=== PATIENT | female | born 1980 | race Caucasian/White ===

== ENCOUNTER → 2021-02-13 11:59 | Outpatient (CLI) | payer OTHER, SELFPAY ==
[2021-02-13 21:28] LABS: COVID19 - ORCAS (NP or Nasal) Negative (Negative)
== END ==
PROVIDERS: Family Provider Family Medicine; PCP Family Medicine; Visit Provider Physician Assistant Medical
DX: Z20.822 Contact with and (suspected) exposure to COVID-19 (principal); R05.9 Cough, unspecified
CPT/HCPCS: U0003

== ENCOUNTER → 2024-03-28 10:55 | Outpatient (CLI) | payer OTHER, SELFPAY ==
[2024-03-28 19:16] LABS: Add Manual Diff / Slide Review NO; Basophils Absolute Auto 0 /uL (0-100); Basophils Percent Auto 0.8 % (0-2); Eosinophils Absolute Auto 0 /uL (0-450); Eosinophils Percent Auto 0.9 % (2-4); Hematocrit 40.1 % (36-46); Hemoglobin 13.4 g/dL (12.0-16.0); Lymphocytes Absolute Auto 1700 /uL (1100-4500); Lymphocytes Percent Auto 31.1 % (25-40); Mean Corpuscular HGB Conc 33.3 % (30-36); Mean Corpuscular Hemoglobin 29.5 PG (26-34); Mean Corpuscular Volume 88.5 fL (80-100); Monocytes Absolute Auto 400 /uL (0-900); Monocytes Percent Auto 7.9 % (3-14); Neutrophils Absolute Auto 3300 /uL (1500-7000); Neutrophils Percent Auto 59.3 % (50-75); Platelet Count 208 X10^3/uL (150-400); Red Blood Cell Count 4.53 X10^6/uL (4.0-5.2); Red Cell Distribution Width 13.6 % (11.6-14.8); White Blood Cell Count 5.6 X10^3/uL (4.5-11.0)
[2024-03-28 19:24] LABS: Alanine Aminotransferase 19 IU/L (<35); Albumin 4.6 g/dL (3.5-5.0); Albumin Globulin Ratio 1.5 (1.0-2.8); Alkaline Phosphatase 62 U/L (38-126); Aspartate Aminotransferase 52 IU/L (14-36); BUN Creatinine Ratio 14.9 (6-22); Bilirubin Total 0.7 mg/dL (0.2-1.3); Blood Urea Nitrogen 13 mg/dL (7-17); Calcium 9.3 mg/dL (8.4-10.2); Carbon Dioxide 26 mmol/L (22-32); Chloride 103 mmol/L (98-107); Cholesterol 181 mg/dL (140-199); Estimated Glomerular Filt Rate > 60 mL/min (>60); Globulin 3.1 g/dL (1.7-4.1); Glucose 94 mg/dL (70-100); HDL Cholesterol 52 mg/dL (40-60); HEMOLYSIS < 15 (0-50); LDL Cholesterol Calculated 118 mg/dL (<100); Potassium 4.3 mmol/L (3.4-5.1); Sodium 136 mmol/L (137-145); Total Protein 7.7 g/dL (6.3-8.2); Triglycerides 54 mg/dL (35-150)
[2024-03-28 19:49] LABS: TSH w/ Reflex to FT4 0.87 uIU/mL (0.47-4.68)
[2024-03-29 15:34] LABS: HIV 1 & 2 Ab/Ag 4th Gen Combo NEGATIVE (NEGATIVE); Hep C Virus Ab w/Reflex Quant NEGATIVE s/c (NEGATIVE)
== END ==
PROVIDERS: Family Provider Family Medicine; PCP Physician Assistant; Visit Provider Physician Assistant
DX: R53.81 Other malaise (principal); R10.9 Unspecified abdominal pain; R53.82 Chronic fatigue, unspecified; R01.1 Cardiac murmur, unspecified; R43.9 Unspecified disturbances of smell and taste; T83.9XXA Unspecified complication of genitourinary prosthetic device, implant and graft, initial encounter
CPT/HCPCS: 80053; 80061; 84443; 85025; 86803; 87040; 87389

== ENCOUNTER → 2024-04-26 10:40 | Outpatient (CLI) | payer OTHER, SELFPAY ==
--- NOTE | 2024-04-26 10:43 | DI.MG.S_ITS ---
BILATERAL DIGITAL SCREENING MAMMOGRAM 3D/2D WITH CAD: 04/26/2024 CLINICAL: Routine screening. Comparison is made to exam dated: 05/07/2015 mammogram - [facility]. The breasts are heterogeneously dense, which may obscure small masses (category c / 51-75% glandular tissue). Current study was also evaluated with a Computer Aided Detection (CAD) system. There are benign calcifications in both breasts. No significant masses, calcifications, or other findings are seen in either breast. There has been no significant interval change. IMPRESSION: BENIGN There is no mammographic evidence of malignancy. A 1 year screening mammogram is recommended. Based on the Tyrer Cuzick model (a risk assessment model) the patient's lifetime risk is 9.4% and her 10 year risk is 1.3%. According to the ACR, ACS, and NCCN guidelines, an annual breast MRI exam along with mammogram is recommended if the patient's lifetime risk is 20% or greater. This exam was interpreted at Station ID: [id number]. NOTE: For mammograms, a report in lay terms will be sent to the patient. Approximately 15% of breast malignancies will not be visualized mammographically. In the management of a palpable breast mass, a negative mammogram must not discourage biopsy of a clinically suspicious lesion. Electronically Signed By: Carrie [email or web address]:04/26/2024 17:44:11 letter sent: Normal Exam ACR BI-RADS Category 2: Benign
--- NOTE | 2024-04-26 10:51 | DI.ECHO.S_ITS ---
[facility] +---------+ [facility] : : [address] : : [place] : : [id number] : : Phone: [phone] Echocardiogram Report + + :Name: AMOR LYLES Study Date: 04/26/2024 Height: 66 in : :[facility] ReadingLocation: Weight: 185 lb : : Gender: Female BSA: 1.9 m2 : :: 1980 Age: 43 yrs BP: 117/82 mmHg: :Reason For Study: HEART MURMUR : :Ordering Physician: ORQUIDEA FELIX Performed By: Qiana Villasenor : :Referring: ORQUIDEA FELIX : + + Interpretation Summary 1. The left ventricular contractility is borderline. Estimate ejection fraction is 50 to 55% with no segmental wall motion abnormalities. No LVH. Normal diastolic function. 2. The right ventricular contractility is normal. 3. All cardiac chambers are of normal size. 4. Trace to mild mitral regurgitation. 5. No obvious intracardiac shunts. 6. No obvious intracardiac masses nor thrombi. 7. No hemodynamically significant pericardial effusion. 8. Low right-sided filling pressures. Conclusion: Low normal left ventricular systolic function with no significant valvular abnormalities. Procedure: A two-dimensional transthoracic echocardiogram with color flow and Doppler was performed. The study quality was technically adequate. There is no prior echocardiogram noted for this patient. The patient was in sinus rhythm with heart rates between 64-78 bpm during the exam. Left Ventricle: The left ventricle is normal in size and wall thickness. The ejection fraction is estimated to be 50-55%. Right Ventricle: The right ventricle is normal in size and function. Atria: The left atrial size is normal. Right atrial size is normal. There is no Doppler evidence for an interatrial shunt. Mitral Valve: There is no mitral annular calcification. The mitral valve leaflets appear to open well. There is mild mitral regurgitation. Aortic Valve: The aortic valve is trileaflet. The aortic valve opens well. There is no aortic valve stenosis. No aortic regurgitation is present. Tricuspid Valve: The tricuspid valve leaflets are thin and pliable. There is mild tricuspid regurgitation. The right ventricular systolic pressure is estimated to be at least 24 mmHg based on an estimated right atrial pressure of 3 mm Hg. Pulmonic Valve: The pulmonic valve leaflets are thin and pliable; valve motion is normal. There is a trace or physiologic amount of pulmonic regurgitation. Great Vessels: The aortic root is normal size. The dimensions of the ascending aorta are normal. The IVC is of normal diameter and collapses greater than 50% with a sniff. This suggests a low right atrial pressure of 3 mm Hg. Pericardium/ Pleura There is no pericardial effusion. There is no pleural effusion. MMode/2D Measurements & Calculations LVIDd: 5.0 cm LVOT diam: 2.2 cm LVIDs: 3.7 cm Ao root diam: 2.6 cm FS: 26.2 % asc Aorta Diam: 2.6 cm EPSS: 0.68 cm Ao Arch Diam (Prox Trans): 2.5 cm IVSd: 0.69 cm LVPWd: 0.73 cm LV kline. diameter/BSA (cm/m^2): 2.6 LV sys. diameter/BSA (cm/m^2): 1.9 LA A2 area: 12.1 cm2 RA long axis: 3.8 cm LA A4 area: 11.9 cm2 RA area: 12.0 cm2 LA length (vol): 4.0 cm RA vol: 32.4 ml LA vol: 31.1 ml RA : 16.7 ml/m2 LA vol index: 16.1 ml/m2 IVC diam: 1.3 cm RVD1 (basal): 3.9 cm RVD2 (mid): 3.3 cm TAPSE: 1.8 cm Doppler Measurements & Calculations Ao V2 max: 134.2 cm/sec LVOT Max Maulik: 93.1 cm/sec Ao V2 mean: 98.7 cm/sec LV V1 max P.5 mmHg Ao max P.2 mmHg LV V1 VTI: 18.5 cm Ao mean P.3 mmHg CHRISTINA(I,D): 2.6 cm2 Ao V2 VTI: 27.7 cm CHRISTINA(V,D): 2.7 cm2 sev ratio: 0.67 CHRISTINA indexed to BSA (cm^2/m^2): 1.3 MV E max maulik: 78.4 cm/sec TR max maulik: 228.1 cm/sec MV A max maulik: 69.0 cm/sec TR max P.8 mmHg MV E/A: 1.1 PA V2 max: 117.5 cm/sec Med Peak E' Maulik: 7.8 cm/sec PA V2 mean: 82.0 cm/sec E/E' med: 10.1 PA mean P.0 mmHg Lat Peak E' Maulik: 12.9 cm/sec PA pr(Accel): 18.6 mmHg E/E' lat: 6.1 E/e' average: 8.1 MV dec time: 0.23 sec MVA(VTI): 3.0 cm2 MV V2 mean: 57.4 cm/sec SV(LVOT): 72.2 ml MV mean P.5 mmHg MV V2 VTI: 24.0 cm Reading Physician:ARAVIND
== END ==
PROVIDERS: Family Provider Family Medicine; PCP Physician Assistant; Referring Provider Physician Assistant; Visit Provider Physician Assistant
DX: Z12.31 Encounter for screening mammogram for malignant neoplasm of breast (principal); R92.333 Mammographic heterogeneous density, bilateral breasts; R01.1 Cardiac murmur, unspecified; I08.1 Rheumatic disorders of both mitral and tricuspid valves
CPT/HCPCS: 77063; 77067; 93306